=== PATIENT | male | born 1985 | race Two or more races ===

== ENCOUNTER 2017-12-11 11:20 | Emergency (ER) | payer OTHER ==
[~2017-12-11] VITALS: Ht 190.5 cm; Wt 113.4 kg
[2017-12-11 12:27] VITALS: BP 155/94
[2017-12-11] MEDS ORDERED: KETOROLAC TROMETH 60MG/2ML VIAL IM ONE (13:15)
== END 2017-12-11 13:43 | disposition home or self-care (01) ==
LOC: ER 11:20
DX: S83.92XA Sprain of unspecified site of left knee, initial encounter (principal); X50.1XXA Overexertion from prolonged static or awkward postures, initial encounter; Y93.89 Activity, other specified; Y92.89 Other specified places as the place of occurrence of the external cause; Y99.8 Other external cause status
CPT/HCPCS: 73562; 96372; 99284; J1885